=== PATIENT | male | born 1980 | race Native Hawaiian/Other Pacific Islander ===

== ENCOUNTER 2018-09-27 09:09 | Outpatient (CLI) | payer OTHER | END 2018-09-27 09:10 | disposition home or self-care (01) | LOC: SC 09:09 | PROVIDERS: ATTEND Internal Medicine Pulmonary Disease | DX: G47.10 Hypersomnia, unspecified (principal); G47.8 Other sleep disorders; R06.83 Snoring | CPT/HCPCS: 99203; 99212 ==

== ENCOUNTER 2018-10-07 20:31 | Outpatient (CLI) | payer OTHER | END 2018-10-07 20:32 | disposition home or self-care (01) | LOC: SC 20:31 | PROVIDERS: ATTEND Internal Medicine Pulmonary Disease | DX: G47.33 Obstructive sleep apnea (adult) (pediatric) (principal) | CPT/HCPCS: 95810 ==

== ENCOUNTER 2018-11-17 10:18 | Outpatient (CLI) | payer OTHER | END 2018-11-17 10:19 | disposition home or self-care (01) | LOC: SC 10:18 | PROVIDERS: ATTEND Nurse Practitioner Family | DX: G47.33 Obstructive sleep apnea (adult) (pediatric) (principal) | CPT/HCPCS: 99212; 99214 ==

== ENCOUNTER 2019-01-24 08:15 | Outpatient (CLI) | payer OTHER | END 2019-01-24 08:16 | disposition home or self-care (01) | LOC: SC 08:15 | PROVIDERS: ATTEND Nurse Practitioner Family | DX: G47.33 Obstructive sleep apnea (adult) (pediatric) (principal) | CPT/HCPCS: 99212; 99214 ==

== ENCOUNTER 2019-05-02 13:06 | Outpatient (CLI) | payer OTHER ==
[2019-05-02 14:12] VITALS: BP 104/64
--- NOTE | 2019-05-02 14:12 | SLEEP CARE CONSULTATION ---
Information from patient questionnaire entered by Jayleen Arndt. I have reviewed and concur with the information entered by Jayleen Arndt. This document represents the service I personally performed and the decisions made by me, Fernanda Pelletier, RN, MSN, RISK CONTROL ANALYST. History of Present Illness Previous diagnosis: Mild, Obstructive Sleep Apnea-Hypopnea Syndrome AHI: 5.8 Reason for CPAP/BiPAP follow up: three month Equipment type: CPAP Equipment obtained from: [facility] Mask style: Full face Backup mask available: Yes Last cushion change: 2 weeks ago Prior sleep studies: Yes Year and Where: 2018 [facility] additional information: He is moving later this week to [place] to join family. He has been able to achieve more sleep as advised and is more rested. CPAP Compliance Data - Data Reviewed with Patient Average duration of nightly device use: 7h 20m Compliance rate %: 91 Current pressure setting (cmH2O): 8 Subjective Patient concerns: reports: condensation in mask/hose (only when figuring out right adjustments ). denies: aerophagia, mask discomfort, air blowing in eyes, mask leak noise, nasal congestion, dry mouth, nose, throat, epistaxis Observed to snore while using device: No Current pressure setting perceived as: comfortable On therapy, patient: reports: sleeping better, awakening more refreshed, being more awake and alert during the day, more rested overall. denies: drowsiness while driving Initial [place] Sleepiness Scale score: 16 Current [place] Sleepiness Scale score: 6 Allergies and Home Medications Known drug allergies: No Home medication list reviewed: Yes Allergy and home medication list: Medication Name (generic/name brand) Strength & Dosage Hyoscaymine 0.125mg tab one daily Loratadine 10mg tab one daily Fluticasone Propionate 50mcg/act Nasal Use as directed Allergy List Dust Grass Review of Systems Review of systems same as previous: Yes Physical Exam Blood Pressure: 104/64 Cuff size: long Heart Rate: 100 O2 Saturation: 98 Height: 5 ft 10 in Weight: 189 lb (without gear) Body Mass Index: 27.1 BMI Classification: Overweight Impression and Plan 1. Obstructive Sleep Apnea-Hypopnea Syndrome, mild , with good treatment compliance and good apnea control. On CPAP therapy, the patient has better sleep quality and is more rested overall. Especially since obtaining more sleep. I re viewed the supply replacement list and cleaning equipment list given for reference. I advised him to use CPAP wipes in place of alcohol as alcohol may be too drying for the mask. For his move, he is advised to establish care with PCP and then referral to establish with sleep provider. If continued care here, he would be seen in 6 months. Generally an annual appointment is necessary to check efficacy of treatment and update his prescription. Patient's apnea severity and rationale for treatment to reduce apnea, improve sleep quality and reduce cardiovascular and cerebrovascular events was reviewed. I also reviewed the benefit of consistent device use of CPAP for hypertension. He also has noted reduced IBS symptoms with CPAP use. * Continue CPAP pressure at 8 cmH2O * Use CPAP wiper instead of alcohol * Notify me if snoring with mask or feeling that the pressure is too much or too little * Attempt to lose weight * Return for follow up in as needed before move. I spent 100% of this 18 minute visit face to face with the patient with greater than 50% of this was spent time counseling the patient and coordination of care.
== END 2019-05-02 13:07 | disposition home or self-care (01) ==
LOC: SC 13:06
PROVIDERS: ATTEND Nurse Practitioner Family
DX: G47.33 Obstructive sleep apnea (adult) (pediatric) (principal); E66.3 Overweight; Z68.27 Body mass index [BMI] 27.0-27.9, adult
CPT/HCPCS: 99212; 99213